=== PATIENT | female | born 1985 | race Caucasian/White ===

== ENCOUNTER 2019-10-02 00:33 | Emergency (ER) | payer OTHER ==
[2019-10-02] MEDS ORDERED: Lidocaine 1% (PF) 30 ML VIAL ONE (01:26)
[2019-10-02] MEDS ORDERED: cefTRIAXone\\ROCEPHIN 1 GM VIAL ONE (01:26)
== END 2019-10-02 01:32 | disposition home or self-care (01) ==
LOC: NAV ERS 00:33
DX: J02.0 Streptococcal pharyngitis (principal); G43.909 Migraine, unspecified, not intractable, without status migrainosus; I11.0 Hypertensive heart disease with heart failure; I50.9 Heart failure, unspecified; F17.210 Nicotine dependence, cigarettes, uncomplicated; Z79.899 Other long term (current) drug therapy
CPT/HCPCS: 87430; 96372; 99283; J0696; J2001

== ENCOUNTER 2021-04-01 15:35 | Emergency (ER) | payer OTHER ==
[2021-04-01] MEDS ORDERED: Ketorolac Tromethamine 60 MG/2 ML VIAL ONE (16:05)
== END 2021-04-01 16:48 | disposition home or self-care (01) ==
LOC: NAV ERS 15:35
DX: S22.32XA Fracture of one rib, left side, initial encounter for closed fracture (principal); I10 Essential (primary) hypertension; F17.210 Nicotine dependence, cigarettes, uncomplicated; W01.198A Fall on same level from slipping, tripping and stumbling with subsequent striking against other object, initial encounter
CPT/HCPCS: 96372; J1885

== ENCOUNTER 2021-10-30 23:16 | Emergency (ER) | payer OTHER ==
[2021-10-30 23:30] LABS: #Basophils 0.1 thou/uL (0.0-0.2); #Eosinphils 0.2 thou/uL (0.0-0.7); #Lymphocytes 2.3 thou/uL (1.20-3.40); #Monocytes 0.5 thou/uL (0.11-0.59); %Basophils 0.8 % (0.0-1.0); %Eosinophils 2.3 % (0.0-10.0); %Lymphocytes 25.2 % (21.0-51.0); %Monocytes 5.7 % (0.0-10.0); Hemoglobin 13.6 g/dL (12.0-16.0); Mean Corpuscular HGB CONC 31.2 g/dL (32.0-36.0); Mean Corpuscular Hemoglobin 27.8 pg (27.0-31.0); Mean Corpuscular Volume 89.2 fL (78.0-98.0); Mean Platelet Volume 9.5 fL (7.4-10.4); Platelet Count 235 thou/uL (130-400); RBC Distribution Width 11.8 % (11.5-14.5); Red Blood Cell (RBC) Count 4.88 mill/uL (4.20-5.40); White Blood Cell (WBC) Count 9.1 thou/uL (4.8-10.8)
[2021-10-30] MEDS ORDERED: Boostrix 0.5 ML (Tdap) VIAL (>/=7 yrs of age) ONE (23:30)
[2021-10-30] MEDS ORDERED: Fentanyl 100 MCG/2 ML VIAL ONE ×2 (23:30→23:50)
[2021-10-30 23:35] LABS: INR-International Normal Ratio 0.9; PTT 30.2 sec (22.9-36.1); Prothrombin Time 12.3 sec (12.0-14.7)
[2021-10-30 23:43] LABS: ALT (SGPT) 16 U/L (8-55); AST (SGOT) 13 U/L (5-34); Albumin 4.5 g/dL (3.5-5.0); Alkaline Phosphatase 97 U/L (40-110); Anion Gap 16 mmol/L (10-20); BUN (Urea Nitrogen) 14 mg/dL (7.0-18.7); Bilirubin, Total 0.3 mg/dL (0.2-1.2); Calc. Creatinine Clearance 0 mL/min (70-130); Calcium 9.5 mg/dL (7.8-10.44); Carbon Dioxide 22 mmol/L (22-29); Chloride 103 mmol/L (98-107); Estimated GFR 79; Globulin 3.1 g/dL (2.4-3.5); Glucose 114 mg/dL (70-105); Potassium 3.4 mmol/L (3.5-5.1); Protein, Total 7.6 g/dL (6.0-8.3); Sodium 138 mmol/L (136-145)
[2021-10-31] MEDS ORDERED: Lactated Ringer's 1,000 ML ONE (00:14)
[2021-10-31] MEDS ORDERED: HYDROmorphone 2 MG TAB ONE (00:20)
[2021-10-31] MEDS ORDERED: HYDROmorphone 0.5 MG/0.5 ML SYRINGE ONE ×2 (00:22→00:50)
== END 2021-10-31 01:32 | disposition home or self-care (01) ==
LOC: NAV ERS 23:16
DX: T24.211A Burn of second degree of right thigh, initial encounter (principal); T24.212A Burn of second degree of left thigh, initial encounter; T31.0 Burns involving less than 10% of body surface; I10 Essential (primary) hypertension; G43.909 Migraine, unspecified, not intractable, without status migrainosus; F17.210 Nicotine dependence, cigarettes, uncomplicated; X08.8XXA Exposure to other specified smoke, fire and flames, initial encounter
CPT/HCPCS: 80053; 83605; 85025; 85610; 85730; 90471; 90715; 96361; 96374; 96375; J1170; J3010; J7120